=== PATIENT | female | born 1975 | race Caucasian/White ===

== ENCOUNTER 2017-12-06 16:56 | Emergency (ER) | payer BC ==
[2017-12-06] MEDS ORDERED: Ketorolac 30 MG/ML SDV IVPUSH ONE (19:20)
[2017-12-06] MEDS ORDERED: fentaNYL 100 MCG/2 ML SDV IVPUSH ONE (19:20)
[2017-12-06] MEDS ORDERED: Sodium Chloride 0.9% 1,000 ML IV ONE (19:20)
[2017-12-06] MEDS ORDERED: Sodium Chloride 0.9% 10 ML Syringe FLUSH PRN (19:20)
[2017-12-06] MEDS ORDERED: Sodium Chloride 0.9% 2.5 ML Syringe FLUSH PRN (19:20)
--- NOTE | 2017-12-06 19:25 | EDM.PDOC ---
ED HPI GENERAL MEDICAL PROBLEM - General Chief Complaint: Back Pain or Injury Stated Complaint: LOW BACK PAIN Time Seen by Provider: 12/06/17 19:12 - History of Present Illness INITIAL COMMENTS - FREE TEXT/NARRATIVE: HISTORY AND PHYSICAL: History of present illness: The patient is a 42-year-old female with complicated medical history including cervical spine surgery with cadaver bone, gastroparesis, bowel resection, a G- tube for which she receives tube feedings and fibromyalgia who presents with lumbar back pain on the left side that started yesterday. The patient said she just stood up from her desk and felt the pain and she has had pain in the past. Patient has had an MRI of her lumbar spine at [facility] recently but she is not sure when and she is not sure of the results but she knows that she has disc problems in that region. She has received steroid injections in the past but is currently on no pain regimen or physical therapy. Patient has had no bowel or latter disturbances since yesterday and is urinating normally. She has no flank pain and no systemic planes of fever chills abdominal pain. She has not had any upper respiratory complaints. Patient says that because of the pain she feels weak and she's having difficulty getting around. The pain does not shoot down her leg. Patient tells me that she has had intermittent nausea and some small amounts of vomiting due to the pain but she has no abdominal complaints. Patient has had a hysterectomy Review of systems: As per history of present illness and below otherwise all systems reviewed and negative. Past medical history: As per history of present illness and as reviewed below otherwise noncontributory. Surgical history: As per history of present illness and as reviewed below otherwise noncontributory. Social history: No reported history of drug or alcohol abuse. Family history: As per history of present illness and as reviewed below otherwise noncontributory. Physical exam: Gen.: Well-developed well-nourished thin female who is nontoxic and vital signs are reviewed by me. Patient moves in the ED getting in and out of the bed and within the bed without any assistance. HEENT: Atraumatic, normocephalic, negative for conjunctival pallor or scleral icterus, mucous membranes moist, throat clear, neck supple, nontender, trachea midline. Lungs: Clear to auscultation, breath sounds equal bilaterally, chest nontender. Heart: S1S2, regular, negative for clicks, rubs, or JVD. Abdomen: Soft, nondistended, nontender. Feeding tube is in place and there is no rebound guarding or tenderness on palpation Negative for masses or hepatosplenomegaly. Negative for costovertebral tenderness. There is no grossly distended bladder on exam or suprapubic tenderness Pelvis: Stable nontender. Genitourinary: Deferred. Rectal: There is normal perianal and perirectal sensation normal tone normal push and squeeze Extremities: Atraumatic, negative for cords or calf pain. Neurovascular unremarkable. No defects or deformities and full range of motion without any deficits although patient moves very slowly due to her discomfort Neuro: Awake, alert, oriented. Cranial nerves II through XII unremarkable. Cerebellum unremarkable. Motor and sensory unremarkable throughout. Exam nonfocal. Patellar reflexes are +2 over 4 bilaterally but motor in the bed with straight leg rise is only 3/5. Dorsi and plantar flexion is intact 4/5 inclusive of the great toe patient is able to invert and [place] the feet. All of the neuro exam is symmetrical. Back: There are no midline step-offs tenderness defects of the thoracic or lumbar spine and there is no paraspinal tenderness in the lumbar area but there is some SI joint tenderness on the left and the patient says the pain originates in this region. Diagnostics: Therapeutics: IV fluids fentanyl Norflex Toradol She refuses steroids as she says that they make her "crazy". Patient is feeling much improved and would like to not finish the IV fluids as she said she can go home and push fluids in her G-tube. She says that she was only having nausea and some vomiting because of the pain and now that that's controlled she does not have those symptoms. I will send the patient home with strict instructions to follow-up with her provider who is not on staff here in the next few days for reevaluation and further pain management as well as imaging as indicated. I will give her a few Percocet as well as Norflex for home. Impression: Lumbar back pain with history of same Definitive disposition and diagnosis as appropriate pending reevaluation and review of above. Lower Back Pain Score (Numeric/FACES): 10 - Related Data Allergies Allergy/AdvReac Type Severity Reaction Status Date / Time adhesive Allergy Rash Verified 12/06/17 18:02 banana Allergy Anaphylactic Verified 12/06/17 18:02 Shock hydromorphone Allergy Anaphylactic Verified 12/06/17 18:02 Shock latex Allergy Difficulty Verified 12/06/17 18:02 Breathing levofloxacin [From Levaquin] Allergy Hives Verified 12/06/17 18:02 metoclopramide Allergy Hives Verified 12/06/17 18:02 Penicillins Allergy Rash Verified 12/06/17 18:02 Sulfa (Sulfonamide Allergy Anaphylactic Verified 12/06/17 18:02 Antibiotics) Shock sumatriptan Allergy Anaphylactic Verified 12/06/17 18:02 Shock Home Meds: Home Meds Acetaminophen/oxyCODONE [Percocet 325-5 MG] 1 tab PRN 12/06/17 [History] Gabapentin 6 ml DAILY 12/06/17 [History] Past Medical History Gastrointestinal History: Reports: Diverticulosis, Other (See Below) Other Gastrointestinal History: gastrophoresis, currently does tube feedings Musculoskeletal History: Reports: Fibromyalgia, Other (See Below) Other Musculoskeletal History: degenerative disc disease Psychiatric History: Reports: Anxiety Endocrine/Metabolic History: Reports: Vitamin D Deficiency - Past Surgical History GI Surgical History: Reports: Appendectomy, Cholecystectomy, Colon, Colonoscopy , Other (See Below) Other GI Surgeries/Procedures: bowel resection, feeding tube placement Female Surgical History: Reports: Hysterectomy Musculoskeletal Surgical History: Reports: Other (See Below) Other Musculoskeletal Surgeries/Procedures:: lumbar surgery, cadaver tissue C5 and 6 Social & Family History - Family History Family Medical History: Noncontributory - Tobacco Use Smoking Status *Q: Current Every Day Smoker Years of Tobacco use: 25 Packs/Tins Daily: 0.5 - Recreational Drug Use Recreational Drug Use: No ED ROS GENERAL - Review of Systems Review Of Systems: ROS reveals no pertinent complaints other than HPI. ED EXAM, GENERAL - Physical Exam Exam: See Below (see Dictation) Course - Vital Signs Last Recorded V/S: Last Vital Signs Temp 37.1 C 12/06/17 18:22 Pulse 57 L 12/06/17 18:22 Resp 18 12/06/17 18:22 BP 113/66 12/06/17 18:22 Pulse Ox 95 12/06/17 18:22 - Orders/Labs/Meds Orders: Active Orders 24 hr Category Date Time Status Sodium Chloride 0.9% [Saline Flush] Med 12/06/17 19:20 Active 10 ml FLUSH ASDIRECTED PRN Sodium Chloride 0.9% [Saline Flush] Med 12/06/17 19:20 Active 2.5 ml FLUSH ASDIRECTED PRN Saline Lock Insert [OM.PC] Stat Oth 12/06/17 19:20 Ordered Medication Orders Sodium Chloride (Saline Flush) 10 ml FLUSH ASDIRECTED PRN PRN Reason: Keep Vein Open Sodium Chloride (Saline Flush) 2.5 ml FLUSH ASDIRECTED PRN PRN Reason: Keep Vein Open Meds: Medications Generic Name Dose Route Start Last Admin Trade Name Freq PRN Reason Stop Dose Admin Sodium Chloride 10 ml 12/06/17 19:20 Saline Flush FLUSH ASDIRECTED PRN Keep Vein Open Sodium Chloride 2.5 ml 12/06/17 19:20 Saline Flush FLUSH ASDIRECTED PRN Keep Vein Open Discontinued Medications Generic Name Dose Route Start Last Admin Trade Name Freq PRN Reason Stop Dose Admin Fentanyl 50 mcg 12/06/17 19:20 12/06/17 19:45 Sublimaze IVPUSH 12/06/17 19:21 50 mcg ONETIME ONE Administration Sodium Chloride 1,000 mls @ 999 mls/hr 12/06/17 19:20 12/06/17 19:35 Normal Saline IV 12/06/17 20:20 999 mls/hr STAT ONE Administration Ketorolac Tromethamine 30 mg 12/06/17 19:20 12/06/17 19:44 Toradol IVPUSH 12/06/17 19:21 30 mg ONETIME ONE Administration Ketorolac Tromethamine Confirm 12/06/17 19:29 12/06/17 19:44 Toradol Administered 12/06/17 19:30 Not Given Dose 30 mg .ROUTE .STK-MED ONE Orphenadrine Citrate 60 mg 12/06/17 19:20 12/06/17 19:43 Norflex IM 12/06/17 19:21 60 mg NOW ONE Administration Departure - Departure Time of Disposition: 20:40 Disposition: Home, Self-Care 01 Condition: Good Clinical Impression: Acute lumbar back pain Qualifiers: Back pain laterality: left Sciatica presence: without sciatica Qualified Code(s ): M54.5 - Low back pain - Discharge Information Referrals: PCP,None [Primary Care Provider] - Forms: ED Department Discharge Additional Instructions: The following information is given to patients seen in the emergency department who are being discharged to home. This information is to outline your options for follow-up care. We provide all patients seen in our emergency department with a follow-up referral. The need for follow-up, as well as the timing and circumstances, are variable depending upon the specifics of your emergency department visit. If you don't have a primary care physician on staff, we will provide you with a referral. We always advise you to contact your personal physician following an emergency department visit to inform them of the circumstance of the visit and for follow-up with them and/or the need for any referrals to a consulting specialist. The emergency department will also refer you to a specialist when appropriate. This referral assures that you have the opportunity for followup care with a specialist. All of these measure are taken in an effort to provide you with optimal care, which includes your followup. Under all circumstances we always encourage you to contact your private physician who remains a resource for coordinating your care. When calling for followup care, please make the office aware that this follow-up is from your recent emergency room visit. If for any reason you are refused follow-up, please contact the [facility] emergency department at and ask to speak to the emergency department charge nurse. [facility]- [facility] [place] [phone] Please contact your provider or one of our providers in the clinic for follow- up care as we discussed. Return to ER as needed and as discussed. Please use [id number] Aleve or ibuprofen in addition to the Norflex and Percocet you have been prescribed. Apply ice or heat to areas of discomfort as needed for symptoms - My Orders Last 24 Hours: My Active Orders 12/06/17 19:20 Sodium Chloride 0.9% [Saline Flush] 10 ml FLUSH ASDIRECTED PRN Sodium Chloride 0.9% [Saline Flush] 2.5 ml FLUSH ASDIRECTED PRN Saline Lock Insert [OM.PC] Stat - Assessment/Plan Last 24 Hours: My Active Orders 12/06/17 19:20 Sodium Chloride 0.9% [Saline Flush] 10 ml FLUSH ASDIRECTED PRN Sodium Chloride 0.9% [Saline Flush] 2.5 ml FLUSH ASDIRECTED PRN Saline Lock Insert [OM.PC] Stat
[2017-12-06] MEDS ORDERED: Ketorolac 30 MG/ML SDV ONE (19:29)
== END 2017-12-06 20:50 | disposition home or self-care (01) ==
LOC: MW.ED 16:56
DX: M54.5 Low back pain (principal); F17.210 Nicotine dependence, cigarettes, uncomplicated; Z79.899 Other long term (current) drug therapy; Z88.2 Allergy status to sulfonamides; Z88.8 Allergy status to other drugs, medicaments and biological substances; Z88.1 Allergy status to other antibiotic agents; Z88.0 Allergy status to penicillin; Z88.5 Allergy status to narcotic agent; Z91.040 Latex allergy status; Z91.018 Allergy to other foods; Z91.048 Other nonmedicinal substance allergy status
CPT/HCPCS: 96361; 96372; 96374; 96375; 99283; J1885; J2360; J3010; J7040; 99284